=== PATIENT | male | born 1980 | race Caucasian/White ===

== ENCOUNTER 2022-02-05 10:58 | Inpatient (IN) ==
[2022-02-05 11:57] LABS: Urine Appearance Clear; Urine Bilirubin Negative (Negative); Urine Blood Negative (Negative); Urine Color Yellow; Urine Glucose Negative (Negative); Urine Ketones Negative (Negative); Urine Nitrite Negative (Negative); Urine Protein Negative (Negative); Urine Specific Gravity 1.006 (1.002-1.030); Urine Urobilinogen Negative (Negative)
[2022-02-05 12:17] LABS: Urine Benzodiazepine Screen None Detected (None Detect); Urine Cannabinoids Screen Presumptive Positive (None Detect); Urine Opiates Screen None Detected (None Detect)
[2022-02-05 12:22] LABS: ABS Basophils 0.1 10^3/ul (0-0.2); ABS Eosinophils 0.1 10^3/ul (0-0.6); ABS Lymphocytes 2.3 10^3/ul (1.0-4.8); ABS Monocytes 0.7 10^3/ul (0-0.8); ABS Neutrophils 5.7 10^3/ul (1.5-7.7); Hematocrit 41 % (42-52); Hemoglobin 14.3 g/dL (14.0-18.0); Lymphocyte % 25.9 %; Mean Corpuscular HGB Conc 35 g/dL (31-36); Mean Corpuscular Hemoglobin 32 pg (27-31); Mean Corpuscular Volume 91 fL (80-94); Mean Platelet Volume 10.9 fL (7.4-10.4); Platelet Count 180 10^3/uL (150-450); Red Blood Count 4.47 10^6 /uL (4.18-5.48); Red Cell Distribution Width 14 % (10-15); White Blood Count 8.7 10^3/uL (3.5-10.8)
[2022-02-05 13:15] LABS: ALT 33 U/L (7-52); AST 29 U/L (13-39); Acetaminophen < 15 mcg/mL; Albumin 4.4 g/dL (3.2-5.2); Albumin/Globulin Ratio 1.8 (1-3); Alcohol, S < 13 mg/dL (<13); Alkaline Phosphatase 97 U/L (35-149); Anion Gap 9 mmol/L (2-11); Blood Urea Nitrogen 12 mg/dL (6-24); CO2 Carbon Dioxide 28 mmol/L (22-32); Calcium 9.5 mg/dL (8.6-10.3); Chloride 95 mmol/L (101-111); Globulin 2.5 g/dL (2-4); Glucose 96 mg/dL (70-100); Potassium 3.5 mmol/L (3.5-5.0); Salicylate < 2.50 mg/dL (<30); Sodium 132 mmol/L (135-145); Total Protein 6.9 g/dL (6.4-8.9); eGFR CKD-EPI 105.1 (>60)
[2022-02-05] MEDS: Nicotine GUM 4MG FRUIT FLAVOR PO PRN ×3 (13:41→21:01)
[2022-02-05] MEDS ORDERED: Al Hydrox/Mg Hydrox/Simet LIQ 30 ML UDC PO PRN (14:32)
[2022-02-05] MEDS ORDERED: Nicotine PATCH 14 MG/24 HR PATCH TRANSDERM ONE (22:00)
[2022-02-06 08:20] LABS: HDL Cholesterol 34.8 mg/dL
[2022-02-06] MEDS: Aspirin EC 81 mg TAB.EC (enteric coated) PO SCH (08:50)
[2022-02-06] MEDS: Nicotine GUM 4MG FRUIT FLAVOR PO PRN ×4 (12:18→20:17)
[2022-02-06] MEDS ORDERED: Nicotine PATCH 14 MG/24 HR PATCH TRANSDERM SCH (21:00)
[2022-02-07] MEDS: Nicotine GUM 4MG FRUIT FLAVOR PO PRN ×6 (07:40→22:04)
[2022-02-07] MEDS: Aspirin EC 81 mg TAB.EC (enteric coated) PO SCH (09:03)
[2022-02-07] MEDS: Nicotine PATCH 14 MG/24 HR PATCH TRANSDERM SCH (13:20)
[2022-02-08] MEDS: Nicotine GUM 4MG FRUIT FLAVOR PO PRN ×8 (02:08→21:40)
[2022-02-08] MEDS: Nicotine PATCH 14 MG/24 HR PATCH TRANSDERM SCH (08:40)
[2022-02-08] MEDS: Aspirin EC 81 mg TAB.EC (enteric coated) PO SCH (08:44)
[2022-02-09] MEDS: Nicotine GUM 4MG FRUIT FLAVOR PO PRN ×8 (00:01→22:07)
[2022-02-09] MEDS: Aspirin EC 81 mg TAB.EC (enteric coated) PO SCH (07:04)
[2022-02-09] MEDS: Nicotine PATCH 14 MG/24 HR PATCH TRANSDERM SCH (07:04)
[2022-02-10] MEDS: Nicotine GUM 4MG FRUIT FLAVOR PO PRN ×6 (02:50→22:32)
[2022-02-10] MEDS: Aspirin EC 81 mg TAB.EC (enteric coated) PO SCH (09:40)
[2022-02-10] MEDS: Nicotine PATCH 14 MG/24 HR PATCH TRANSDERM SCH (09:43)
[2022-02-11] MEDS: Nicotine GUM 4MG FRUIT FLAVOR PO PRN ×4 (06:10→19:44)
[2022-02-11] MEDS: Nicotine PATCH 14 MG/24 HR PATCH TRANSDERM SCH (07:17)
[2022-02-11] MEDS: Aspirin EC 81 mg TAB.EC (enteric coated) PO SCH (08:30)
[2022-02-12] MEDS: Nicotine GUM 4MG FRUIT FLAVOR PO PRN ×7 (06:44→22:36)
[2022-02-12] MEDS: Nicotine PATCH 14 MG/24 HR PATCH TRANSDERM SCH (09:05)
[2022-02-12] MEDS: Aspirin EC 81 mg TAB.EC (enteric coated) PO SCH (09:08)
[2022-02-13] MEDS: Nicotine GUM 4MG FRUIT FLAVOR PO PRN ×7 (01:58→21:06)
[2022-02-13] MEDS: Nicotine PATCH 14 MG/24 HR PATCH TRANSDERM SCH (07:33)
[2022-02-13] MEDS: Aspirin EC 81 mg TAB.EC (enteric coated) PO SCH (09:56)
[2022-02-14] MEDS: Nicotine GUM 4MG FRUIT FLAVOR PO PRN ×3 (02:35→08:33)
[2022-02-14] MEDS: Nicotine PATCH 14 MG/24 HR PATCH TRANSDERM SCH (08:29)
[2022-02-14] MEDS: Aspirin EC 81 mg TAB.EC (enteric coated) PO SCH (08:30)
[2022-02-14 08:41] VITALS: BP 120/63
== END 2022-02-14 12:00 | disposition home or self-care (01) | DRG 753 ==
LOC: ED 10:58 → EDHOLD 14:46 → BSU 17:45
PROVIDERS: ADMIT Psychiatry & Neurology Psychiatry; ATTEND Student in an Organized Health Care Education/Training Program